=== PATIENT | male | born 1985 | race Hispanic/Latino ===

== ENCOUNTER → 2017-12-26 | Day surgery (SDC) | payer OTHER ==
[~2017-12-26] VITALS: Ht 180.3 cm; Wt 99.8 kg
[~2017-12-26] MED LIST: PERCOCET 5-3251 EACH PO
--- NOTE | 2018-01-02 16:57 | Operative Report ---
Operative/Inv Procedure Report Surgery Date: 12/26/17 Name of Procedure: Robotic mesh repair of bilateral inguinal hernias, and open mesh repair of incarcerated ventral incisional hernia Pre-Operative Diagnosis: Bilateral inguinal hernias and incisional ventral hernia Post-Operative Diagnosis: Same Estimated Blood Loss: scant Surgeon/Dye Tub Tender: Joan ALVARES,Moses ABRAHAM Anesthesia: general endotracheal tube Operative/Procedure Note Note: Patient was positioned supine. After successful induction of general anesthesia , the abdomen was prepped and draped in usual sterile fashion, based on body habitus we aimed our 3 trocar sites to be in the mid-epigastrium: the middle and 2 bilateral, centered slightly off the midline aiming towards the groin, local anesthetic was injected in a spot left lateral subcostal, a 1 cm incision was made with a 15 blade and then using a 5 mm optical trocar inserted into the 8 mm robotic trocar, attached to a 5 mm camera and the trocar was advanced through the abdominal wall watching on the screen, as the trocar passes through the layers, alternating colors, yellow fat white fascia red muscle, until the tip just seems to rodgers the inner thin peritoneal layer. At that point, I stop pushing and check if it's open by turning on the gas. If the belly insufflates then you know you can advance the trocar into an empty space more directly without injuring the viscera into the peritoneum and then the gas was turned on to 15 mm. We placed the other two 8 mm robotic trochars while watching with the camera bilaterally roughly in the same line, symmetrically.Then the Robot was moved to the patient, then docked and targeted. At this point you could see both inguinal hernias, we approached the right one first, with adherent fat going up into the defect. We then developed / started the peritoneal flap horizontally at the level of the iliac crest starting laterally to medial to umbilical ligament with cautery and then dissected within the flap the inguinal anatomy. At this early point I also scored a line for the left inguinal flap to keep it symmetric. Using mostly blunt dissection with a bipolar fenestrated grasper and a scissors, first Rufino's ligament is swept off medially, checking the medial spaces, direct and femoral, while being particularly mindful of the proximity of the iliac vein, but also dissecting beneath it enough to make room for the mesh, there were no hernias there, . Then briefly skipping over the area of the iliac fat pad, we developed the iliopubic tract out laterally to the iliac crest. Then we returned to the area of the fat pad, laterally where the hernia sac and splayed out spermatic cord were adherent, coursing up into an attenuated deep ring. There was some preperitoneal fat up inside in front that was dragged down and out, along with the lip of the peritoneal sac down off the cord which form a triangle, blood vessels approaching laterally the vas medially with the apex at the deep ring, it was an attenuated sac but we did not put a hole in it. Once the hernia sac is from the vas down to the below Rufino's medially at the bladder, and laterally the iliopubic tract below this, a laparoscopic Parietex sided mesh without the keyhole or the suture, is marked and stuffed down the camera trocar, then unfurled in a systematic fashion, to cover both the hernia and the direct spaces and to make sure its tucked below Rufino's ligament and in that crevice Retzius space by the bladder and laterally beneath the iliopubic tract without curling and superiorly towards the camera. The mesh was adjusted back and forth so the edges are not curling. There was some preperitoneal fat that we had brought down that helped hold the mesh down inferiorly. I tacked it in 3 places one each on either side of the epigastric vessels superiorly and one medially just at the top of Rufino's ligament. Then we developed the flap and dissected out the inguinal anatomy on the left just as we did on the right, same steps. Then we brought up the peritoneal flap on the right, and sewed it shut across with a 2-0 V lock. We did the same for the left. We then checked again for holes, then undocked, let rest of the gas escape, pulling out the instruments and trochars. Then we approached the small incarcerated ventral incisional hernia this was from prior laparoscopic appendectomy, after injecting local anesthetic we reopened that curved supraumbilical 2 cm incision from prior surgery. This was deepened with cautery and the herniated / incarcerated fat and overlying sac were dissected circumferentially off the fascia, defining the true edges of the defect. It was oriented vertically, we then inserted the Ventralex coated 4.3 centimeter mesh underneath the defect using the tails to center it and then closed the defect with interrupted 2-0 Maxon sutures in this case 4, incorporating the mesh with each bite. The subcutaneous layer and Carlos's fascia were reapproximated to cover. Then the 4 incisions, the umbilical and the 3 trochars at the top were reapproximated with interrupted subcuticular 4-0 Biosyn, followed by Mastisol, Steri-Strips and Band-Aids and/or Telfa Tegaderm. EBL minimal lap and sponge counts correct wound expectancy clean IV fluids crystalloid complications none patient tolerated the procedure well was awakened extubated returned to the recovery room in satisfactory condition.
== END ==
LOC: STS 11-28 07:00
DX: K40.20 Bilateral inguinal hernia, without obstruction or gangrene, not specified as recurrent (principal); K43.0 Incisional hernia with obstruction, without gangrene; E07.9 Disorder of thyroid, unspecified; F17.200 Nicotine dependence, unspecified, uncomplicated; K21.9 Gastro-esophageal reflux disease without esophagitis; J45.909 Unspecified asthma, uncomplicated
CPT/HCPCS: 49650; 49561; 49568; 64488; S2900; 87086; C1781; J2250; J3490